=== PATIENT | male | born 1995 | race Caucasian/White ===

== ENCOUNTER 2025-01-25 14:18 | Emergency (ER) | payer OTHER, SELFPAY ==
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
[2025-01-25 15:09] VITALS: BP 146/85; PULSE 72; RESP 16; TEMP 36.6; O2SAT 98; BMI 29.4
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
[2025-01-25 21:39] VITALS: BP 162/97; PULSE 76; RESP 16; TEMP 37.1; O2SAT 98
[2025-01-25 22:14] VITALS: BP 162/97; PULSE 76; RESP 16; TEMP 37.1; O2SAT 98
== END 2025-01-25 22:14 | disposition home or self-care (01) ==
LOC: HO.ED 22:31
PROVIDERS: Emergency Provider Emergency Medicine
DX: Z04.1 Encounter for examination and observation following transport accident (principal); F07.81 Postconcussional syndrome
CPT/HCPCS: 70450; 72125; 99284

== ENCOUNTER → 2025-01-25 15:14 | Outpatient (BNV) | payer SELFPAY | PROVIDERS: Visit Provider Radiology Diagnostic Radiology | DX: R51.9 Headache, unspecified (principal); S09.90XA Unspecified injury of head, initial encounter; V89.2XXA Person injured in unspecified motor-vehicle accident, traffic, initial encounter | CPT/HCPCS: 70450; 72125 ==